=== PATIENT | female | born 1975 | race Caucasian/White ===

== ENCOUNTER 2018-10-16 16:03 | Inpatient (IN) | payer MEDICAID ==
[2018-10-16] MEDS: ACETAMINOPHEN 500 MG TAB PO (17:47)
[2018-10-16 21:02] LABS: ADD UMIC NO; UR ASCORBIC ACID NEGATIVE (NEGATIVE); UR BILIRUBIN (Dip) NEGATIVE (NEGATIVE); UR BLOOD (Dip) NEGATIVE (NEGATIVE); UR CLARITY CLEAR (CLEAR); UR COLOR YELLOW (YELLOW); UR GLUCOSE (Dip) NEGATIVE (NEGATIVE); UR KETONES (Dip) 1+ mg/dL (NEGATIVE); UR LEUKOCYTE ESTERASE (Dip) NEGATIVE Leu/ul (NEGATIVE); UR NITRITE (Dip) NEGATIVE (NEGATIVE); UR SPECIFIC GRAVITY (Dip) 1.006 (1.003-1.030); UR TOTAL PROTEIN (Dip) NEGATIVE (NEGATIVE); UR UROBILINOGEN (Dip) NEGATIVE (NEGATIVE)
[2018-10-16] MEDS ORDERED: ACETAMINOPHEN 325 MG TAB PO (22:00)
[2018-10-16] MEDS: LACTATED RINGER'S 1,000 ML IV (22:49)
[2018-10-16 23:08] LABS: ADD MAN DIFF? NO
[2018-10-16 23:13] LABS: WHITE BLOOD COUNT 11.1 10^3/ul (4.8-10.8)
[2018-10-16 23:13] LABS: BASOPHILS % 0.4 % (0.0-2.0); EOSINOPHILS # 0.3 10^3/ul (0.0-0.5); EOSINOPHILS % 2.9 % (0.0-7.0); HEMATOCRIT 33.3 % (37.0-47.0); HEMOGLOBIN 11.1 g/dl (12.0-16.0); LYMPHOCYTES # 1.5 10^3/ul (0.8-2.9); LYMPHOCYTES % 13.3 % (15.0-51.0); MEAN CORPUSCULAR HEMOGLOBIN 29.8 pg (29.0-33.0); MEAN CORPUSCULAR HGB CONC 33.3 g/dl (32.0-37.0); MEAN CORPUSCULAR VOLUME 89.3 fl (82.0-101.0); MEAN PLATELET VOLUME 10.7 fl (7.4-10.4); MONOCYTE # 0.8 10^3/ul (0.3-0.9); MONOCYTES % 6.9 % (0.0-11.0); NEUTROPHIL # 8.4 10^3/ul (1.6-7.5); NEUTROPHILS % 75.3 % (39.0-77.0); PLATELET COUNT 242 10^3/UL (140-415); RED BLOOD COUNT 3.73 10^6/ul (4.20-5.40); RED CELL DISTRIBUTION WIDTH 14.6 % (11.5-14.5)
[2018-10-16 23:31] LABS: INR 0.86; PARTIAL THROMBOPLASTIN TIME 27.8 Sec (23.0-35.0); PROTIME 11.8 Sec (11.9-14.9); PT RATIO 0.9
[2018-10-17] MEDS: LACTATED RINGER'S 1,000 ML IV (07:01)
[2018-10-17] MEDS: PRENATAL VITAMIN PO (11:06)
[2018-10-17] MEDS: GUAIFENESIN/DM 5ML CUP PO (16:47)
== END 2018-10-17 17:00 | disposition home or self-care (01) | DRG 833 ==
LOC: OBT 16:03 → L-D 16:03 → OBT 23:10 → L-D 23:10
PROC: 4A1HXCZ Monitoring of Products of Conception, Cardiac Rate, External Approach (ICD-10-PCS; principal; 2018-10-16)
DX: O26.893 Other specified pregnancy related conditions, third trimester (principal); R10.9 Unspecified abdominal pain; Z3A.36 36 weeks gestation of pregnancy
CPT/HCPCS: 76815; 76818; 81003; 85025; 85610; 85730; 86900; 86901

== ENCOUNTER 2018-10-30 19:50 | Inpatient (IN) | payer MEDICAID ==
[2018-10-30] MEDS ORDERED: LACTATED RINGER'S 1,000 ML IV (20:41)
[2018-10-30] MEDS ORDERED: CARBOPROST 250 MCG INJ IM (21:00)
[2018-10-30] MEDS ORDERED: METHYLERGONOVINE 0.2 MG INJ IM (21:00)
[2018-10-30] MEDS ORDERED: LIDOCAINE 1% (MPF) 30 ML INJ INJ (21:00)
[2018-10-30] MEDS: MINERAL OIL LIGHT 10 ML VIAL TOP (21:00)
[2018-10-30] MEDS ORDERED: OXYTOCIN 30 UNITS/LR 500 ML IV (21:00)
[2018-10-30] MEDS ORDERED: BUTORPHANOL 1 MG INJ IV (21:00)
[2018-10-30] MEDS ORDERED: IBUPROFEN 600 MG TAB PO (21:00)
[2018-10-30] MEDS ORDERED: BUTORPHANOL 2 MG INJ IV (21:00)
[2018-10-30] MEDS ORDERED: MISOPROSTOL 200 MCG TAB PR (21:00)
[2018-10-30] MEDS: LACTATED RINGER'S 1,000 ML IV (21:15)
[2018-10-30 21:23] LABS: ADD MAN DIFF? NO
[2018-10-30] MEDS: OXYTOCIN 30 UNITS/LR 500 ML IV ×3 (21:27→23:40)
[2018-10-30 21:30] LABS: BASOPHIL # 0.1 10^3/ul (0.0-0.1); BASOPHILS % 0.4 % (0.0-2.0); EOSINOPHILS # 0.3 10^3/ul (0.0-0.5); HEMATOCRIT 37.8 % (37.0-47.0); HEMOGLOBIN 12.5 g/dl (12.0-16.0); LYMPHOCYTES # 2.1 10^3/ul (0.8-2.9); MEAN CORPUSCULAR HEMOGLOBIN 29.2 pg (29.0-33.0); MEAN CORPUSCULAR HGB CONC 33.1 g/dl (32.0-37.0); MEAN CORPUSCULAR VOLUME 88.3 fl (82.0-101.0); MEAN PLATELET VOLUME 10.5 fl (7.4-10.4); MONOCYTE # 0.8 10^3/ul (0.3-0.9); MONOCYTES % 5.8 % (0.0-11.0); NEUTROPHIL # 10.4 10^3/ul (1.6-7.5); NEUTROPHILS % 75.3 % (39.0-77.0); PLATELET COUNT 290 10^3/UL (140-415); RED BLOOD COUNT 4.28 10^6/ul (4.20-5.40); RED CELL DISTRIBUTION WIDTH 14.9 % (11.5-14.5)
[2018-10-30 21:30] LABS: WHITE BLOOD COUNT 13.7 10^3/ul (4.8-10.8)
[2018-10-30 21:50] LABS: INR 0.86; PROTIME 11.8 Sec (11.9-14.9); PT RATIO 0.9
[2018-10-30 21:51] LABS: PARTIAL THROMBOPLASTIN TIME 27.7 Sec (23.0-35.0)
[2018-10-31] MEDS ORDERED: METHYLERGONOVINE 0.2 MG TAB PO (01:30)
[2018-10-31] MEDS ORDERED: MISOPROSTOL 200 MCG TAB PR (01:30)
[2018-10-31] MEDS ORDERED: CARBOPROST 250 MCG INJ IM (01:30)
[2018-10-31] MEDS ORDERED: METHYLERGONOVINE 0.2 MG INJ IM (01:30)
[2018-10-31] MEDS ORDERED: OXYTOCIN 30 UNITS/LR 500 ML IV (01:30)
[2018-10-31] MEDS ORDERED: MAGNESIUM HYDROXIDE 30ML CUP PO (01:30)
[2018-10-31] MEDS: DEXTROSE 5%-LR 1,000 ML IV ×3 (04:05→17:02)
[2018-10-31] MEDS: OXYTOCIN 30 UNITS/LR 500 ML IV (04:55)
[2018-10-31] MEDS: IBUPROFEN 800 MG TAB PO ×3 (05:49→21:41)
[2018-10-31] MEDS: LANOLIN HPA 1 PKT TOP (05:49)
[2018-10-31] MEDS: WITCH HAZEL/GLYCERIN PAD PR (06:33)
[2018-10-31] MEDS: BENZOCAINE 20% 56 ML SPRAY TOP (06:34)
[2018-10-31] MEDS: HYDROCODONE/APAP (5/325) TAB NGT (07:59)
[2018-10-31] MEDS: SENNA/DOCUSATE NA (8.6MG/50MG) TAB PO ×2 (08:32→21:41)
[2018-10-31 08:36] LABS: ADD MAN DIFF? NO
[2018-10-31 08:37] LABS: BASOPHIL # 0.1 10^3/ul (0.0-0.1); BASOPHILS % 0.3 % (0.0-2.0); EOSINOPHILS # 0.1 10^3/ul (0.0-0.5); EOSINOPHILS % 0.6 % (0.0-7.0); HEMOGLOBIN 11.5 g/dl (12.0-16.0); LYMPHOCYTES # 1.9 10^3/ul (0.8-2.9); LYMPHOCYTES % 10.3 % (15.0-51.0); MEAN CORPUSCULAR HEMOGLOBIN 29.9 pg (29.0-33.0); MEAN CORPUSCULAR HGB CONC 33.8 g/dl (32.0-37.0); MEAN CORPUSCULAR VOLUME 88.3 fl (82.0-101.0); MEAN PLATELET VOLUME 10.8 fl (7.4-10.4); MONOCYTE # 1.1 10^3/ul (0.3-0.9); MONOCYTES % 5.9 % (0.0-11.0); NEUTROPHIL # 15.1 10^3/ul (1.6-7.5); NEUTROPHILS % 81.7 % (39.0-77.0); PLATELET COUNT 263 10^3/UL (140-415); RED BLOOD COUNT 3.85 10^6/ul (4.20-5.40); RED CELL DISTRIBUTION WIDTH 14.6 % (11.5-14.5)
[2018-10-31 08:37] LABS: WHITE BLOOD COUNT 18.4 10^3/ul (4.8-10.8)
[2018-10-31] MEDS ORDERED: DIPHTH/TET/ACEL PERTUSS (ADULT) 0.5 ML VIAL IM* (11:00)
[2018-10-31] MEDS: HYDROCODONE/APAP (5/325) TAB GTB ×2 (13:35→21:42)
[2018-10-31 15:04] LABS: RAPID PLASMA REAGIN NONREACTIVE (NR)
[2018-11-01] MEDS: HYDROCODONE/APAP (5/325) TAB GTB ×2 (05:44→13:59)
[2018-11-01] MEDS: IBUPROFEN 800 MG TAB PO ×3 (05:44→18:04)
[2018-11-01] MEDS: SENNA/DOCUSATE NA (8.6MG/50MG) TAB PO (08:03)
[2018-11-01 08:23] LABS: ADD MAN DIFF? NO
[2018-11-01 08:30] LABS: WHITE BLOOD COUNT 12.3 10^3/ul (4.8-10.8)
[2018-11-01 08:30] LABS: BASOPHIL # 0.1 10^3/ul (0.0-0.1); BASOPHILS % 0.5 % (0.0-2.0); EOSINOPHILS # 0.4 10^3/ul (0.0-0.5); EOSINOPHILS % 3.3 % (0.0-7.0); HEMATOCRIT 34.9 % (37.0-47.0); HEMOGLOBIN 11.5 g/dl (12.0-16.0); LYMPHOCYTES # 2.2 10^3/ul (0.8-2.9); LYMPHOCYTES % 18.1 % (15.0-51.0); MEAN CORPUSCULAR HEMOGLOBIN 29.2 pg (29.0-33.0); MEAN CORPUSCULAR VOLUME 88.6 fl (82.0-101.0); MEAN PLATELET VOLUME 10.9 fl (7.4-10.4); MONOCYTE # 0.8 10^3/ul (0.3-0.9); MONOCYTES % 6.4 % (0.0-11.0); NEUTROPHIL # 8.6 10^3/ul (1.6-7.5); NEUTROPHILS % 70.5 % (39.0-77.0); PLATELET COUNT 291 10^3/UL (140-415); RED BLOOD COUNT 3.94 10^6/ul (4.20-5.40)
[2018-11-02] MEDS ORDERED: MEASLES,MUMPS,RUBELLA VACCINE INJ SC* (09:00)
[2018-11-02] MEDS ORDERED: DIPHTH/TET/ACEL PERTUSS (ADULT) 0.5 ML VIAL IM* (09:00)
== END 2018-11-01 18:34 | disposition home or self-care (01) | DRG 807 ==
LOC: OBT 19:50 → PP1 10-31 00:42 → L-D 19:51 → OBT 20:40 → L-D 20:40
PROVIDERS: Obstetrics & Gynecology
PROC: 10E0XZZ Delivery of Products of Conception, External Approach (ICD-10-PCS; principal; 2018-10-30)
PROC: 0HQ9XZZ Repair Perineum Skin, External Approach (ICD-10-PCS; 2018-10-30)
DX: O70.0 First degree perineal laceration during delivery (principal); Z37.0 Single live birth; O69.81X0 Labor and delivery complicated by cord around neck, without compression, not applicable or unspecified; Z3A.38 38 weeks gestation of pregnancy
CPT/HCPCS: 85025; 85610; 85730; 86592; 86850; 86900; 86901